=== PATIENT | female | born 1955 | race Caucasian/White ===

== ENCOUNTER → 2016-10-08 | Outpatient (CLI) | payer MEDICARE ==
--- NOTE | 2016-10-17 16:03 | SS ---
ADMIT: 10/08/2016 RM/LOC: [facility] MR#: [id number] [facility] [id number] [place], [place] [id number] LITZY BLAIR [address] [place] [address] Sleep Study SEX: F AGE: 61 : 1955 STUDY DATE: 10/08/2016 CLINICAL HISTORY: A 61-year-old female who has symptoms of unrefreshed sleep, fatigue, prior history of obstructive sleep apnea, in the sleep lab for evaluation for obstructive sleep apnea. TECHNICAL DESCRIPTION: Diagnostic polysomnogram performed on night of 10/08/2016, attended by a trained nuclear technologist. Kindly refer to certified ophthalmic technician notes for more details. DIAGNOSTIC POLYSOMNOGRAM FINDINGS: SLEEP: Total time in bed is 424.5 minutes, total sleep time 324 minutes, sleep efficiency 76%. 23.4% time was spent in stage 1 sleep, 44.9% time was spent in stage II sleep. No REM sleep was seen. BREATHING: [id number]-[id number] obstructive sleep apnea with an apnea-hypopnea index of 14.4. During the study, there were 54 obstructive apneas and 24 obstructive hypopneas noted. OXYGEN SATURATION: Average oxygen saturation during the study was 94%. Lowest oxygen saturation 90%. CARDIAC: Average heart rate 77 beats per minute. MOVEMENTS/POSITION: During the study, the patient slept in the supine lateral position with few periodic leg movements of sleep. IMPRESSION AND PLAN: Kjlq-hd-qwnlndtr obstructive sleep apnea with an apnea- hypopnea of 14.4. Recommend CPAP titration. Alternating auto CPAP from 4 to 20 cm can be tried. Recommend losing weight. Avoiding sedatives or alcohol, refrain from driving if excessively sleepy. Clinical correlation needed. CPAP therapy is recommended. Ángel Leung MD/ vicenta JOB #: [id number] CC: Alonzo Nina MD, Attending Physician Alonzo Nina MD, Family Physician Alonzo Nina MD
== END | disposition home or self-care (01) ==
LOC: RESC 07-17 21:00
DX: G47.33 Obstructive sleep apnea (adult) (pediatric) (principal)

== ENCOUNTER 2016-11-07 23:55 | Emergency (ER) | payer MEDICARE ==
--- NOTE | 2016-11-08 19:08 | ER ---
ADMIT: 11/07/2016 RM/LOC: ER [facility] MR#: [id number] [id number] [place], [place] [id number] LITZY BLAIR [address] [place] [address] Emergency Room Report SEX: F AGE: 61 : 1955 DATE: 11/07/2016 HISTORY OF PRESENT ILLNESS: The patient is a 61-year-old female with past medical history of hypertension, came to the ER with chief complaint of right upper abdominal and right upper flank pain in the posterior. The patient states she had this symptom for 20 hours and it continues in the ED, and is moderate to severe in severity. The patient denies similar symptoms in the past and states she had cholecystectomy in the past. The patient states she had chicken pox when she was a child and denies any rashes and states that she got the shingles vaccinations too. PHYSICAL EXAMINATION: GENERAL: The patient was in moderate to severe distress. HEAD and NECK: Shows normal without any bruits on the neck. CHEST: Clear bilaterally. HEART: Normal cardiac sounds without any gallops or murmur. ABDOMEN: In the right upper abdomen and right posterior upper flank, the patient had tenderness which increased with palpation of the area. The patient had no guarding or rebound. The rest of the physical examination was negative and noncontributory. LABORATORY DATA AND IMAGING: Chest x-ray was negative for any acute changes. EKG was also negative. Cardiac enzymes, troponin I was negative. Lipase was 66. The patient had glucose of 113, with creatinine of 1.2. WBC was 7.8, with hemoglobin of 11.1. Urine was positive for 17 white blood cell and 11 red blood cells and nitrite was also positive too. The pain was controlled. With diagnosis of UTI, the patient received Keflex in the ER and was discharged to home with prescription for Keflex and follow up with the primary doctor. Upon discharge, the patient was in no distress and was stable. She acknowledged she understood the plan and agreed with it. Tha Joseph MD/ vicenta JOB #: [id number] CC: Tha Joseph MD, Attending Physician Alonzo Nina MD, Family Physician
== END 2016-11-08 02:54 | disposition home or self-care (01) ==
LOC: ER 23:55
DX: N39.0 Urinary tract infection, site not specified (principal); I10 Essential (primary) hypertension; Z90.49 Acquired absence of other specified parts of digestive tract; Z79.899 Other long term (current) drug therapy